=== PATIENT | female | born 1960 | race Caucasian/White ===

== ENCOUNTER 2017-07-29 06:54 | Day surgery (SDC) | payer OTHER ==
[~2017-07-29 06:54] MED LIST: Buffered Lidocaine 0.9% SYRIN* 5 ML/SYR SYRINGE INTRADERM ONE; DiMENhydriNATE IV* 50 MG/ML VIAL IV PUSH PRN; Famotidine TAB* 20 MG PO ONE; Naloxone* 0.4 MG/ML 1 ML VIAL IV PRN; PROCHLORPERAZINE INJ 5 MG/ML 2 ML VIAL IV PRN; Scopolamine 1.5 mg* PATCH TRANSDERM PRN
[2017-07-29] MEDS ORDERED: ceFAZolin 2 GM PREMIX (*) 2 GM/50 ML BAG IVPB ONE (06:56)
[2017-07-29] MEDS ORDERED: Famotidine TAB* 20 MG ONE (06:56)
[2017-07-29] MEDS ORDERED: Bupivacaine 0.25% SDV* 30 ML ONE ×2 (07:10→09:24)
[2017-07-29] MEDS ORDERED: fentaNYL* 50 MCG/ML 2 ML VIAL (100 MCG VIAL) ONE ×3 (07:51→10:48)
[2017-07-29] MEDS ORDERED: Midazolam* 1 MG/ML 10 ML VIAL (10 MG) ONE (07:51)
[2017-07-29] MEDS ORDERED: Propofol* 1,000 MG/100 ML BTL ONE (09:25)
[2017-07-29] MEDS ORDERED: Phenylephrine INJ* 10 MG/ML 1 ML VIAL (10 MG) ONE (09:25)
[2017-07-29] MEDS ORDERED: EPHEDrine (Pressors)* 50 MG/ML VIAL ONE (09:26)
[2017-07-29] MEDS ORDERED: Dexamethasone IV* 4 MG/ML 1 ML (4 MG) ONE (09:26)
[2017-07-29] MEDS ORDERED: Ondansetron INJ* 2 MG/ML VIAL ONE (09:26)
[2017-07-29] MEDS ORDERED: Ketorolac INJ* 30 MG/ML 1 ML VIAL ONE (09:26)
[2017-07-29] MEDS ORDERED: Propofol* 10 MG/ML 20 ML BTL IV PUSH ONE (09:26)
[2017-07-29] MEDS ORDERED: Morphine INJ* 10 MG/ML 1 ML CARPUJECT ONE ×2 (09:26→10:59)
[2017-07-29] MEDS: fentaNYL* 50 MCG/ML 2 ML VIAL (100 MCG VIAL) IV PRN ×4 (10:49→11:01)
[2017-07-29] MEDS ORDERED: oxyCODONE/Acetamin 5/325 MG* TAB ONE ×2 (10:59→13:03)
[2017-07-29] MEDS: oxyCODONE/Acetamin 5/325 MG* TAB PO PRN ×2 (11:00→13:04)
[2017-07-29] MEDS: Morphine INJ* 2 MG/ML 1 ML CARPUJECT IV PRN ×4 (11:04→12:44)
[2017-07-29 13:18] VITALS: BP 140/78
--- NOTE | 2017-07-29 15:29 | RAD ---
INDICATION: Left midfoot osteotomy. COMPARISON: Comparison is made with a prior x-ray study of the left foot from April 12, 2014. TECHNIQUE: 6.5 seconds of intermittent fluoroscopic guidance were provided and a single spot film of the left foot was obtained in the operating room. FINDINGS: The patient appears to be status post osteotomy of the first metatarsal. There is a metallic plate transfixed with multiple screws present in the proximal and mid portion of the first metatarsal. IMPRESSION: INTRAOPERATIVE CONTROL FILMS. CPT II Codes: G9500
--- NOTE | 2017-07-29 22:37 | OP ---
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 OPERATIVE PROCEDURE: Debridement, peroneus brevis tendon with tenodesis to the peroneus longus, repair of the peroneus longus tear, calcaneal osteotomy and midfoot dorsiflexion osteotomy. DESCRIPTION OF PROCEDURE: The patient was taken to the operating room where lateral position used. I made a longitudinal incision over the distal fibula then down towards the sinus tarsi. We opened up the sheath at the peroneus and brevis tendons right behind the fibula. The brevis tendon was essentially completely shredded from his position behind the fibula all the way down to the lateral aspect of the cuboid. The peroneus longus had a 3 cm longitudinal tear as well, but it was not completely disrupted. The peroneus longus had a longitudinal incision and debridement and then a Whipstitch suture repair of 3- 0 Vicryl, but the peroneus brevis tendon was basically debrided and then we performed a distal tenodesis with a 2-0 Vicryl suture and a proximal tenodesis with a 2-0 Vicryl suture. The groove was deepened by a small osteotomy along the edge of the fibula. A bone tamp using the deep in the groove and then the retinacular repair with sutures of 0 Vicryl. Through the bed of the peroneus longus tendon, we performed an osteotomy of the calcaneus from the lateral to medial approach. We distracted the osteotomy with laminar tanning drum operator and then displaced this to full 12 to 13 mm laterally and then pinning this with longitudinal 60 mm partially threaded 6.5 screw. This wound was then irrigated and closed laterally with Vicryl and jc for the skin and a 2-0 Prolene for the heel. We then made a longitudinal incision over the first metatarsal. A dorsal closing wedge osteotomy was made at the proximal third of the metatarsal with the micro sagittal saw, which was then fixed with a dorsal Arthrex Lapidus plate. This wound then was closed as well after irrigation with Vicryl and nylon sutures and a compression dressing and plaster splint. [id number]/[facility] #: [id number] JAYDEN
[2017-08-01] MEDS ORDERED: Scopolamine PATCH Remove* 1 NOTE MISC PATCH OFF ONE (06:09)
== END 2017-07-29 13:21 | disposition home or self-care (01) ==
LOC: OR 06:54
PROVIDERS: ATTEND Orthopaedic Surgery
DX: Q66.1 Congenital talipes calcaneovarus (principal); M67.874 Other specified disorders of tendon, left ankle and foot; M25.372 Other instability, left ankle; M76.72 Peroneal tendinitis, left leg; Q66.7 Congenital pes cavus; M79.7 Fibromyalgia; F41.9 Anxiety disorder, unspecified
CPT/HCPCS: 76000; 88304; A9270-GY; C1713; C1776; J0690; J1100; J1885; J2250; J2270; J2405; J2704; J3010